=== PATIENT | female | born 1950 ===

== ENCOUNTER 2025-01-23 11:00 | Outpatient (CLI) | payer OTHER | END 2025-01-23 13:06 | disposition home or self-care (01) | LOC: RAD 11:00 | PROVIDERS: ATTEND Specialist | DX: R22.42 Localized swelling, mass and lump, left lower limb (principal) ==

== ENCOUNTER 2025-01-28 07:00 | Day surgery (SDC) | payer OTHER ==
[2025-01-24 10:47] VITALS: BP 149/77
[2025-01-24 11:11] LABS: INR 1.02
[~2025-01-28] VITALS: Ht 160 cm; Wt 68.0 kg
[2025-01-28] MEDS ORDERED: CEFAZOLIN SODIUM 1,000 MG VIAL IV ONE (10:30)
[2025-01-28] MEDS ORDERED: LIDOCAINE HCL 1%/EPINEPHRINE 20ML VIAL IJ ONE (10:30)
[2025-01-28] MEDS ORDERED: LIDOCAINE HCL 1% 20 ML VIAL IJ ONE (10:30)
[2025-01-28] MEDS ORDERED: CEFAZOLIN SODIUM 1,000 MG VIAL IV SCH (11:30)
== END 2025-01-28 13:00 | disposition home or self-care (01) ==
LOC: CIR.AMB 07:00
PROVIDERS: ATTEND Specialist
DX: D17.79 Benign lipomatous neoplasm of other sites (principal); R22.42 Localized swelling, mass and lump, left lower limb